=== PATIENT | female | born 1995 | race Caucasian/White ===

== ENCOUNTER → 2016-09-02 | Day surgery (SDC) | payer OTHER ==
[~2016-09-02] VITALS: Ht 167.6 cm; Wt 52.2 kg
[~2016-09-02] MED LIST: TRILEPTAL PO; VALPROIC ACID PO
--- NOTE | 2016-09-02 19:41 | Operative Report ---
Operative/Inv Procedure Report Surgery Date: 09/02/16 Name of Procedure: Comprehensive dental rehabilitation Pre-Operative Diagnosis: Dental caries, Autism, Seizure disorder, Acute situational anxiety Post-Operative Diagnosis: Restored dental caries, autism, seizure disorder Estimated Blood Loss: scant Surgeon/Patternmaker Metal: DANISHA PABON DDS Anesthesia: general endotracheal tube, 2% lido with epi 1:100,000 (2cc) Operative/Procedure Note Note: The patient was placed supine on the operating room table. Orotracheal intubation was accomplished and anesthesia so delivered and maintained. The face was suitably draped to expose the oral cavity. A moist gauze tape was inserted in the posterior portion of the mouth as an oropharyngeal partition. The patient ws draped in lead and a full mouth series of radiographs was taken and evaluated 2 cc of 2% lidocaine, 1:100,000 epinephrine was infitrated around teeth 8 and 25 Mr jose isolation was used with suction to isolate the teeth and oral structures The following restorative procedures were performed: #1(O): Vitrebond, Amalgam. Carved and contoured. Checked occlusion and contacts as best I could with tube in place. #2(MO): Vitrebond, Amalgam. Carved and contoured. Checked occlusion and contacts as best I could with tube in place. #3(OL): Vitrebond, PA etch, singlebond, Clinpro shade A2. Contoured and polished. Checked occlusion. #4(MO): Vitrebond, Amalgam. Carved and contoured. Checked occlusion and contacts as best I could with tube in place. #5(DO): Vitrebond, Amalgam. Carved and contoured. Checked occlusion and contacts as best I could with tube in place. #8: History of trauma. Tooth is dark and discolored. PAP on radiograph. Opened chamber through lingual cingulum. Widened orifice with round bur. Instrumented to a 20 K file. Achieved working length 25mm and verified with radiograph. Shaped and cleaned canal to working length, using [place]. Irrigated with Hypogen copiously. Dried canal with paper points. Used primary file to working length in rotary to shape canal. Irrigated and dried. Placed sealer cement. Used wave 1 size primary to working length. Verified with radiographs. Activa linger. PA etch, singlebond, Activa. Contoured and polished. #11(L): PA etch, singlebond, [place] ultra shade A2. Contoured and polished. Checked occlusion as best I could with tube in place. #12(DO):Vitrebond, Amalgam. Carved and contoured. Checked occlusion and contacts as best I could with tube in place. #13(MO): Vitrebond, Amalgam. Carved and contoured. Checked occlusion and contacts as best I could with tube in place. #14(MO): Vitrebond, Amalgam. Carved and contoured. Checked occlusion and contacts as best I could with tube in place. #15(MO): Vitrebond, Amalgam. Carved and contoured. Checked occlusion and contacts as best I could with tube in place. #16(O): Vitrebond, Amalgam. Carved and contoured. Checked occlusion and contacts as best I could with tube in place. #17(O): Large caries, lingual wall very thin. MTA, Vitrebond, PA etch, singlebond, [place] Ultra shade A2. Contoured and polished. Checked occlusion as best I could with tube in place. #18(MO): Vitrebond, Amalgam. Carved and contoured. Checked occlusion and contacts as best I could with tube in place. #19(MOD): Vitrebond, Amalgam. Carved and contoured. Checked occlusion and contacts as best I could with tube in place. #20(DO): Vitrebond, Amalgam. Carved and contoured. Checked occlusion and contacts as best I could with tube in place. #21(DO): Vitrebond, Amalgam. Carved and contoured. Checked occlusion and contacts as best I could with tube in place. #25: Tooth completely out of arch, buccally placed and irritates lower lip, hard to clean. Simple forceps extraction with elevation. Gel foam placed in socket. Hemostasis achieved with gauze and firm pressure. #30,31: Opened pits and fissures. PA etch, singlebond, Ultraseal. Checked margins with explorer #32: Vitrebond, Amalgam. Carved and contoured. Checked occlusion and contacts as best I could with tube in place. The teeth were cleaned and topical fluoride applied. The mouth was debrided and the oropharyngeal partition removed. The patient tolerated the procedure well and was brought to the recovery room in good condition. Preop diagnosis: autism, seizure disorder, dental caries, acute situational anxiety Postop diagnosis: restored dental caries Procedure: dental restorations, root canal, extraction Blood loss: scant Anesthesia: general with endotracheal intubation
== END ==
LOC: STS 02:41
DX: K02.9 Dental caries, unspecified (principal); F84.0 Autistic disorder; R56.9 Unspecified convulsions; F43.22 Adjustment disorder with anxiety
CPT/HCPCS: J0690; J2250